=== PATIENT | female | born 2000 ===

== ENCOUNTER 2021-12-02 09:27 | Outpatient (CLI) | payer OTHER | END 2021-12-02 09:57 | disposition home or self-care (01) | LOC: NST 09:27 | PROVIDERS: ATTEND Specialist | DX: Z34.83 Encounter for supervision of other normal pregnancy, third trimester (principal) ==

== ENCOUNTER 2021-12-05 06:54 | Inpatient (IN) | payer OTHER ==
[~2021-12-05] VITALS: Ht 157.5 cm; Wt 90.7 kg
[2021-12-05] MEDS ORDERED: PRENATAL CAPLE1 EAC1 PO (07:30)
== END 2021-12-08 10:54 | disposition home or self-care (01) | DRG 788 ==
LOC: OBS/DEL 06:54 → LDR 11:40 → OB/GYN 11:40
PROVIDERS: ADMIT Specialist; ATTEND Specialist
PROC: 4A1HXCZ Monitoring of Products of Conception, Cardiac Rate, External Approach (ICD-10-PCS; 2021-12-05)
PROC: 10D00Z1 Extraction of Products of Conception, Low, Open Approach (ICD-10-PCS; principal; 2021-12-05 13:00)
DX: O41.03X0 Oligohydramnios, third trimester, not applicable or unspecified (principal); O76 Abnormality in fetal heart rate and rhythm complicating labor and delivery; Z3A.39 39 weeks gestation of pregnancy; Z37.0 Single live birth; Z20.822 Contact with and (suspected) exposure to COVID-19